=== PATIENT | male | born 2005 | race Caucasian/White ===

== ENCOUNTER 2023-07-14 19:10 | Observation (INO) | payer BC, SELFPAY ==
[2023-07-14] VITALS (9 sets, daily range): BP systolic 141–159; BP diastolic 72–96; PULSE 88–125; RESP 18; TEMP 37.6–37.9; O2SAT 95–99; BMI 22.3; BMI 23.6
[2023-07-14 19:30] LABS: Lactate* 2.7 mmol/L (0.5-1.9)
[2023-07-14] MEDS: 0.9 % SODIUM CHLORIDE 1000 ml 1,000 ML IV ×2 (19:30)
--- NOTE | 2023-07-14 19:30 | CRLHL7_ITS ---
For Patients: As a result of the Cures Act, medical imaging exams and procedure reports are released immediately into your electronic medical record. You may view this report before your referring provider. If you have questions, please contact your health care provider. INDICATION: Cough TECHNIQUE: Chest 1 view. COMPARISON: None. FINDINGS: The heart is normal in size. The pulmonary vasculature is within normal limits. There is consolidation within the right lower lung. Left lung is clear. Negative for pleural effusion or pneumothorax. IMPRESSION: Right consolidation, suggestive of pneumonia. Dictated by Rona Nash MD @ 07/14/2023 8:37:05 PM Dictated by: Rona Nash MD @ 07/14/2023 20:37:48 (Electronically Signed)
[2023-07-14 19:34] LABS: Eosinophils Percent Auto 1.2 % (0.0-7.0); Hematocrit 45.9 % (37.0-53.0); Hemoglobin* 15.2 gm/dL (13.5-17.5); Immature Granulocytes Pct Auto 0.2 %; Mean Corpuscular HGB Conc 33 gm/dL (32-36); Mean Corpuscular Hemoglobin 28 pg (26-34); Mean Corpuscular Volume 86 fL (80-100); Monocytes Percent Auto 9.3 % (0.0-11.0); Neutrophils Percent Auto 78.3 % (42.0-72.0); Platelet Count* 352 K/uL (140-440); RDW Coefficient of Variation % 12.2 % (11.5-15.5); Red Blood Count 5.35 m/uL (4.30-5.90); Slide Review Reflex Yes; White Blood Count* 22.37 K/uL (4.50-11.00)
[2023-07-14 19:46] LABS: Chloride* 105 mmol/L (96-114); Potassium* 4.1 mmol/L (3.6-5.1); Sodium* 139 mmol/L (135-149)
[2023-07-14 19:49] LABS: Anion Gap 14 mEq/L (7-15); Blood Urea Nitrogen* 14 mg/dL (5-24); Carbon Dioxide* 20 mmol/L (20-32); Creatinine* 0.8 mg/dL (0.5-1.5); Estimated Glomerular Filt Rate 130 ml/min; Glucose* 112 mg/dL (60-115)
--- NOTE | 2023-07-14 19:49 | ED_ITS ---
HPI - General Adult General Time Seen by Provider: 19:49 Date Seen: 07/14/23 Chief complaint: Cough Stated complaint: Coughing, difficulty breathing-no info Time Seen by Provider: 07/14/23 19:48 Source: patient and RN notes reviewed Mode of arrival: wheelchair Limitations: no limitations History of Present Illness HPI narrative: Patient is a 18-year-old college student from [place] coming in with coughing and fevers. He states he had a cold for about 2 weeks but last week on Saturday, fevers started to kick in. He has felt worse, coughing, having fevers. He went swimming with out success yesterday, swims for [employer]. No nausea vomiting or diarrhea. Has a history of penicillin allergy, has been trying [id number] cough and cold medicine. Nursing staff reported when he arrived he was coughing to the point he could not talk, was diaphoretic and sweaty. The did get an IV started, start some normal saline immediately. Two blood cultures were drawn. Related Data Previous Rx's Medication Instructions Recorded guaifenesin 600 mg tablet, 600 mg PO BID #14 tabs 07/15/23 extended release 12 hr (Mucus Relief ER) levofloxacin 750 mg tablet 500 mg (0.6667 x 750 mg) PO HS 5 07/15/23 days #5 tabs Allergies Allergy/AdvReac Type Severity Reaction Status Date / Time Penicillins Allergy Mild Hives Verified 07/14/23 20:23 Review of Systems Status of ROS: Reports: 6 or more systems reviewed and unremarkable except as noted in History and below PFSH PFS Surgical History (Updated 07/14/23 @ 22:14 by Olga Case MD) History of placement of ear tubes ?Z96.22 - Myringotomy tube(s) status (ICD-10) Melissa teeth extracted ?K08.409 - Partial loss of teeth, unspecified cause, unspecified class (ICD- 10) History of testicular surgery ?Z98.890 - Other specified postprocedural states (ICD-10) Social History (Updated 07/14/23 @ 22:15 by Olga Case MD) Narrative: From [place], [place]. 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 lives in the dorms. nonsmoker. no vaping. social etoh. What is your current living situation?: I presently have a place to live Problems where you live: no known problems Problems where you live details: N/A In the past 12 months, utilities in danger of being shut off: no In past 12 months, lack of transportation kept you from medical appts, meetings, work, or getting things needed for daily living: no In the past 12 mos, have been you worried that your food would run out before you had money to buy more?: never true In the past 12 mos, the food you bought just didn't last and you didn't have money to buy more?: never true Highest level of school completed/degree received: high school graduate Smoking Status: Never smoker Do you use any of these nicotine containing products: None Second hand tobacco smoke exposure: No How often do you have a drink containing alcohol: never How often do you have six or more drinks on one occasion: Never AUDIT-C Alcohol total score: 0 Non-prescribed substance use: denies use Caffeine: Yes How often does anyone, including family, friends and others, physically hurt you : never How often does anyone, including family, friends and others, insult or talk down to you: never How often does anyone, including family, friends and others, threaten you with harm: never How often does anyone, including family, friends and others, scream or curse at you: never Exam Const: Vital Signs, click to edit/add: Vital Signs - 24 hr 07/14/23 19:18 07/14/23 19:28 Temperature 99.7 F H Pulse Rate [Right Pulse Oximeter] 125 H Respiratory Rate 18 Blood Pressure [Ri ght Upper Arm] 153/96 H Pulse Oximetry 95 95 Oxygen Delivery Me thod Room Air Patient is not coughing to the point that I heard when he 1st came in. He was literally coughing nonstop. Voice is little hoarse presumably from coughing. Sclera clear, conjugate gaze, looks like he does not feel well but is very pleas ant. Face atraumatic, neck supple, no cervical adenopathy or thyromegaly masses or nodules, is able to sit up for me to listen to, has definite crackles right base, diminished air entry left base but I do not hear any wheezing anywhere. CV fast but regular, no murmur, normal S1-S2, no S3 or S4. Abdomen is slender, soft, nondistended, nontender, no organomegaly. He has no lower extremity edema. Skin is currently dry but nursing staff noted that he was sweaty and diaphoretic when he 1st came in. I see no rash. Documenting provider has reviewed patient's vital signs: yes Course Course ED Course: Chest x-ray and labs were done prior to my seen patient. I was able to identify pneumonia on my preliminary review of his chest x-ray. I have subsequently ordered IV antibiotics with Rocephin and oral azithromycin. 2 L of IV fluid have been ordered. Patient does meet criteria for sepsis, he is ill enough that I do think we should observe overnight and make sure that he is clinically stable. Have ordered some Robitussin with codeine to help with his cough symptoms. Reevaluation(s) Time of Reevaluation #1: 20:33 Reevaluation #1: Dad is here, reviewed findings and plan. All are in agreement. Consultations Consultation #1: Have reviewed this case with the hospitalist, she does accept him. Have advised the patient of a plan for observation overnight, he is certainly in agreement. Time: 20:09 Vital Signs Vital signs: Initial Vital Signs Temperature 99.7 F H 07/14/23 19:18 Temperature Source Oral 07/14/23 19:18 Pulse Rate 125 H 07/14/23 19:18 Respiratory Rate 18 07/14/23 19:18 Blood Pressure 153/96 H 07/14/23 19:18 Blood Pressure Mean 115 H 07/14/23 19:18 Blood Pressure Position Supine 07/14/23 19:18 Pulse Oximetry 95 07/14/23 19:18 Oxygen Delivery Method Room Air 07/14/23 19:18 Vital Signs Temperature 99.7 F H 07/14/23 19:18 Pulse Rate 125 H 07/14/23 19:18 Respiratory Rate 18 07/14/23 19:18 Blood Pressure 153/96 H 07/14/23 19:18 Pulse Oximetry 95 07/14/23 19:18 Oxygen Delivery Method Room Air 07/14/23 19:18 Temperature 98.4 F 07/15/23 07:00 Pulse Rate 72 07/15/23 07:00 Respiratory Rate 18 07/15/23 07:00 Blood Pressure 136/86 07/15/23 07:00 Pulse Oximetry 99 07/15/23 07:00 Oxygen Delivery Method Room Air 07/15/23 07:00 Medications Administered Medications: Discontinued Medications Generic Name Dose Route Start Last Admin Trade Name Ye PRN Reason Stop Dose Admin Azithromycin 500 mg 07/14/23 19:54 07/14/23 20:20 Azithromycin 250 Mg Tablet PO 07/14/23 19:55 500 mg ONCE ONE Administration Guaifenesin/Codeine Phosphate 10 ml 07/14/23 19:54 07/15/23 07:29 Guaif/Codeine 200/20mg/10 Ml Solution PO 07/14/23 19:55 Not Given ONCE ONE Ceftriaxone Sodium 2 gm/ 100 mls @ 200 mls/hr 07/14/23 19:54 07/14/23 21:20 Sodium Chloride IVPB 07/14/23 19:55 Infused ONCE ONE Infusion Sodium Chloride 1,000 mls @ 1,000 mls/hr 07/14/23 20:07 07/15/23 07:29 0.9 % Sodium Chloride 1000 Ml IV 07/14/23 21:06 Infused .Q1H LILLI Infusion Sodium Chloride 1,000 mls @ 1,000 mls/hr 07/14/23 20:25 07/14/23 20:33 0.9 % Sodium Chloride 1000 Ml IV 07/14/23 21:24 Infused .Q1H LILLI Infusion Sodium Chloride 1,000 mls @ 250 mls/hr 07/14/23 22:09 07/15/23 10:35 0.9 % Sodium Chloride 1000 Ml IV 250 mls/hr .Q4H LILLI Administration Ketorolac Tromethamine 30 mg 07/14/23 22:09 07/15/23 10:35 Ketorolac 30 Mg/Ml Inj IVP 30 mg Q6H LILLI Administration Levofloxacin 500 mg 07/14/23 23:15 07/15/23 00:08 Levofloxacin 500 Mg Tablet PO 500 mg HS LILLI Administration Sodium Chloride 5 ml 07/14/23 22:09 07/14/23 23:20 Sodium Chloride 0.9 % (Flush) 10 Ml Syringe IVF 5 ml .FLUSH PRN Administration Sodium Chloride 5 ml 07/14/23 22:09 07/15/23 10:29 Sodium Chloride 0.9 % (Flush) 10 Ml Syringe IVF Not Given BID [facility] Medical Decision Making Lab Data Lab results reviewed: Yes I reviewed the patient's lab results Labs: Lab Results 07/14/23 07/14/23 07/14/23 Range/Units 19:15 19:22 20:09 WBC 22.37 H (4.50-11.00) K/uL RBC 5.35 (4.30-5.90) m/uL Hgb 15.2 (13.5-17.5) gm/dL Hct 45.9 (37.0-53.0) % MCV 86 (80-100) fL MCH 28 (26-34) pg MCHC 33 (32-36) gm/dL RDW Coeff of Jason 12.2 (11.5-15.5) % Plt Count 352 (140-440) K/uL Neut % (Auto) 78.3 H (42.0-72.0) % Lymph % (Auto) 11.0 L (20-44) % Garrett % (Auto) 9.3 (0.0-11.0) % Eos % (Auto) 1.2 (0.0-7.0) % Baso % (Auto) 0.0 (0.0-3.0) % Neut # (Auto) 17.50 H (1.7-7.0) K/uL Lymph # (Auto) 2.50 (0.90-2.90) K/uL Garrett # (Auto) 2.10 H (0.00-0.90) K/UL Eos # (Auto) 0.30 (0.00-0.50) K/uL Baso # (Auto) 0.00 (0.00-0.30) K/uL Abs Immat Gran (auto) 0.00 (0.00-0.30) K/uL Imm/Tot Granulo (auto) 0.2 % Diff Slide Review Acceptable Review (Acceptable) VBG pH 7.462 H (7.32-7.43) VBG pCO2 31 L (40-50) mmHG VBG pO2 64.9 H (25-47) mmHG VBG HCO3 22 (21-28) mmol/L Sodium 139 (135-149) mmol/L Potassium 4.1 (3.6-5.1) mmol/L Chloride 105 (96-114) mmol/L Carbon Dioxide 20 (20-32) mmol/L Anion Gap 14 (7-15) mEq/L BUN 14 (5-24) mg/dL Creatinine 0.8 (0.5-1.5) mg/dL Estimated Creat Clear 151.20 Estimated GFR 130 ml/min Glucose 112 (60-115) mg/dL Lactate 2.7 H (0.5-1.9) mmol/L Calcium 9.8 (8.4-10.6) mg/dL C-Reactive Protein 19.0 H (0.5-1.0) mg/dL Procalcitonin 0.59 H (<0.50) ng/mL Urine L. pneumophilia Ag (Negative) Urine Strep pneumoniae Ag (Negative) SARS-CoV-2 (PCR) Negative SARS-CoV-2 (Negative) Influenza Type A (PCR) Negative PCR FLU A (Negative) Influenza Type B (PCR) Negative PCR FLU B (Negative) RSV (PCR) Negative PCR RSV (Negative) Lab Acknowledgement Test Added 07/14/23 07/14/23 Range/Units 20:12 20:40 WBC (4.50-11.00) K/uL RBC (4.30-5.90) m/uL Hgb (13.5-17.5) gm/dL Hct (37.0-53.0) % MCV (80-100) fL MCH (26-34) pg MCHC (32-36) gm/dL RDW Coeff of Jason (11.5-15.5) % Plt Count (140-440) K/uL Neut % (Auto) (42.0-72.0) % Lymph % (Auto) (20-44) % Garrett % (Auto) (0.0-11.0) % Eos % (Auto) (0.0-7.0) % Baso % (Auto) (0.0-3.0) % Neut # (Auto) (1.7-7.0) K/uL Lymph # (Auto) (0.90-2.90) K/uL Garrett # (Auto) (0.00-0.90) K/UL Eos # (Auto) (0.00-0.50) K/uL Baso # (Auto) (0.00-0.30) K/uL Abs Immat Gran (auto) (0.00-0.30) K/uL Imm/Tot Granulo (auto) % Diff Slide Review (Acceptable) VBG pH (7.32-7.43) VBG pCO2 (40-50) mmHG VBG pO2 (25-47) mmHG VBG HCO3 (21-28) mmol/L Sodium (135-149) mmol/L Potassium (3.6-5.1) mmol/L Chloride (96-114) mmol/L Carbon Dioxide (20-32) mmol/L Anion Gap (7-15) mEq/L BUN (5-24) mg/dL Creatinine (0.5-1.5) mg/dL Estimated Creat Clear Estimated GFR ml/min Glucose (60-115) mg/dL Lactate (0.5-1.9) mmol/L Calcium (8.4-10.6) mg/dL C-Reactive Protein (0.5-1.0) mg/dL Procalcitonin (<0.50) ng/mL Urine L. pneumophilia Ag L. pneumo Negative (Negative) Urine Strep pneumoniae Ag S. pneumo Negative (Negative) SARS-CoV-2 (PCR) (Negative) Influenza Type A (PCR) (Negative) Influenza Type B (PCR) (Negative) RSV (PCR) (Negative) Lab Acknowledgement Test Added Imaging Data Chest x-ray: My impression: I see definite right lower pneumonia on this portable chest x-ray. Critical Care Time Critical Care Time Critical Care Time: No Discharge Plan Discharge Clinical Impression: Community acquired pneumonia Patient Disposition: Admitted As Observation Condition: Improved Activity Level: Activity as Tolerated Discharge Diet: Regular
[2023-07-14 19:50] LABS: Calcium* 9.8 mg/dL (8.4-10.6)
[2023-07-14 19:57] LABS: Slide Review Acceptable Review (Acceptable)
[2023-07-14 20:00] LABS: PCR FLU A Negative PCR FLU A (Negative); PCR FLU B Negative PCR FLU B (Negative); PCR RSV Negative PCR RSV (Negative)
[2023-07-14 20:01] LABS: SARS PCR* Negative SARS-CoV-2 (Negative)
[2023-07-14] MEDS: cefTRIAXone 2 GM in 0.9 % SODIUM CHLORIDE Mini-bag 100 ML IVPB (20:10)
[2023-07-14] MEDS: AZITHROMYCIN 250 MG TABLET 500 MG PO (20:20)
[2023-07-14 20:24] LABS: pH VBG 7.462 (7.32-7.43)
[2023-07-14 20:25] LABS: HCO3 VBG 22 mmol/L (21-28); PCO2 VBG 31 mmHG (40-50); PO2 VBG 64.9 mmHG (25-47)
--- NOTE | 2023-07-14 20:40 | P.IMHP_ITS ---
Hospitalist- H&P: HPI History of Present Illness Date Seen: 07/14/23 Chief complaint: Coughing, difficulty breathing-no info Narrative: ADMISSION HISTORY AND PHYSICAL - HOSPITALIST Chief Complaint: URI getting worse over the last 2-3 weeks. 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 He became much worse in the last 5 days - with fever to 102 and vomiting with coughing. He came to the ED tonight, SOB and feeling weak. He is a swimmer and very healthy. Reports no vaping, no recent binge drinking. No smoking. No meds. ER COURSE: fluids, labs, CXR. CODE STATUS: FULL CODE EMERGENCY CONTACT PLAN: Olga Sahni? Mother?Rel to Pat? [phone]?Cell Phone? I've updated the PFSH, medications and allergies in the Expanse tabs. INVESTIGATIONS: LABS/MICRO/ECG/IMAGING T-max 99.7?. Blood pressure 153/96. Pulse 125. Respiratory rate 18. Pulse ox 95% on room air. Weight 72.5 kilos CBC reveals a white count of 22.37 with 78.3% neutrophils. Normal hemoglobin of 15.2. Normal platelet count of 352. PH 7.46. PCO2 31. Normal electrolytes. Normal renal function. Lactate 2.7. CRP 19 Procal >0.5 Negative quad respiratory screen NEG strep pneumo and legionella CXR - 1V Right consolidation, suggestive of pneumonia. REVIEW OF SYSTEMS: 12-point ROS completed with patient and negative unless otherwise stated in HPI or below. PHYSICAL EXAM: CONSTITUTIONAL: flushed, alert, aware. looks ill. VITAL SIGNS: see record. HEENT: Normocephalic, atraumatic. PERRL, EOMI, conjunctivae pink, no scleral icterus. Ears and nose externally normal. Pharynx normal. NECK: No JVD. No carotid bruit, no thyromegaly, no adenopathy. CHEST: coughs with inhalation. crackles on the right chest noted. no wheezes. no resp distress. HEART: S1 and S2 normal. No harsh murmurs. Edema MUSCULOSKELETAL: No gross joint deformity or swelling. NEURO: Cranial nerves intact. Grossly intact. No asymmetric findings. SKIN: No rashes, petechiae, concerning changes PSYCHIATRIC: Euthymic. ADMIT TO MEDSURG: FLOOR CARE DVT: SCDs GI: PO intake Time spent: Today I spent 75 minutes seeing the patient, discussing the patient with ER staff, reviewing Expanse and EPIC notes/diagnostics, discussing the care plan with our care time that includes social work, PT/OT, pharmacy, RT, detention and documenting my impressions and plan in the medical record. [facility] Surgical History (Updated 07/14/23 @ 22:14 by Olga Case MD) History of placement of ear tubes ?Z96.22 - Myringotomy tube(s) status (ICD-10) [place]win teeth extracted ?K08.409 - Partial loss of teeth, unspecified cause, unspecified class (ICD- 10) History of testicular surgery ?Z98.890 - Other specified postprocedural states (ICD-10) Social History (Updated 07/14/23 @ 22:15 by Olga Case MD) Narrative: From [place], [place]. 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 lives in the dorms. nonsmoker. no vaping. social etoh. What is your current living situation?: I presently have a place to live Problems where you live: no known problems Problems where you live details: N/A In the past 12 months, utilities in danger of being shut off: no In past 12 months, lack of transportation kept you from medical appts, meetings, work, or getting things needed for daily living: no In the past 12 mos, have been you worried that your food would run out before you had money to buy more?: never true In the past 12 mos, the food you bought just didn't last and you didn't have money to buy more?: never true Highest level of school completed/degree received: high school graduate Smoking Status: Never smoker Do you use any of these nicotine containing products: None Second hand tobacco smoke exposure: No How often do you have a drink containing alcohol: never How often do you have six or more drinks on one occasion: Never AUDIT-C Alcohol total score: 0 Non-prescribed substance use: denies use Caffeine: Yes How often does anyone, including family, friends and others, physically hurt you : never How often does anyone, including family, friends and others, insult or talk down to you: never How often does anyone, including family, friends and others, threaten you with harm: never How often does anyone, including family, friends and others, scream or curse at you: never Meds Home Medications and Allergies Home Medications Medication Instructions Recorded Confirmed Type No Known Home Medications 07/14/23 07/14/23 History Allergies Allergy/AdvReac Type Severity Reaction Status Date / Time Penicillins Allergy Mild Hives Verified 07/14/23 20:23 Exam Const: Vital Signs, click to edit/add: Vital Signs - 24 hr 07/14/23 19:18 07/14/23 19:28 Temperature 99.7 F H Pulse Rate [Right Pulse Oximeter] 125 H Respiratory Rate 18 Blood Pressure [Ri ght Upper Arm] 153/96 H Pulse Oximetry 95 95 Oxygen Delivery Me thod Room Air Hospitalist - H&P: Result Labs Labs: Short CBC 07/14/23 Range/Units 19:22 WBC 22.37 H (4.50-11.00) K/uL Hgb 15.2 (13.5-17.5) gm/dL Hct 45.9 (37.0-53.0) % Plt Count 352 (140-440) K/uL BMP 07/14/23 19:22 Sodium 139 Potassium 4.1 Chloride 105 Carbon Dioxide 20 BUN 14 Creatinine 0.8 Glucose 112 Calcium 9.8 Assessment and Plan Assessment and plan (1) Community acquired pneumonia: Problem comment: -RLL -Rocephin and azithro in ED, transition to oral Levaquin in am -repeat labs and follow cultures -not on oxygen; however, lives in the dorms at [employer] - will admit to observation for nebs, close observation given SIRS symptoms with assoc weakness -father was bedside (DAMIEN Lomeli) Status: Acute (2) High serum lactate: Problem comment: -fluids -repeat in the am Status: Acute
[2023-07-14 20:50] LABS: Procalcitonin* 0.59 ng/mL (<0.50)
[2023-07-14 21:09] LABS: Legionella pneumo Ag Urine L. pneumo Negative (Negative); S pneumo Ag Urine S. pneumo Negative (Negative)
[2023-07-14] MEDS: 0.9 % SODIUM CHLORIDE 1000 ml 1,000 ML 250 ML IV (23:05)
[2023-07-14] MEDS: KETOROLAC 30 MG/ML inj IVP (23:18)
[2023-07-14] MEDS: SODIUM CHLORIDE 0.9 % (FLUSH) 10 ML SYRINGE 5 ML IVF (23:20)
[2023-07-15] MEDS: levoFLOXacin 500 MG TABLET PO (00:08)
[2023-07-15 03:00] VITALS: BP 127/67; PULSE 65; RESP 18; TEMP 36.9; O2SAT 97
[2023-07-15] MEDS: 0.9 % SODIUM CHLORIDE 1000 ml 1,000 ML 250 ML IV ×2 (03:07→10:35)
[2023-07-15] MEDS: KETOROLAC 30 MG/ML inj IVP ×2 (04:19→10:35)
--- NOTE | 2023-07-15 05:35 | PC.NURSE ---
Shift note: Pt arrived at the unit at 2130 on a wheelchair accompanied by his father. Alert and oriented on arrival. Pt complained of cough and fever. Temp was 100.3 and chilled. Warm blanket given. Other v/s WNL. Assessment done as per chat and oriented to room. Pt was admitted and reviewed by Dr. Case. Treatment given as prescribed.
[2023-07-15 06:07] LABS: HCO3 VBG 27 mmol/L (21-28); Lactate* 1.1 mmol/L (0.5-1.9); PCO2 VBG 49 mmHG (40-50); PO2 VBG 25.5 mmHG (25-47); pH VBG 7.343 (7.32-7.43)
[2023-07-15 06:12] LABS: Basophils Percent Auto 0.2 % (0.0-3.0); Eosinophils Percent Auto 2.6 % (0.0-7.0); Hematocrit 41.8 % (37.0-53.0); Hemoglobin* 13.7 gm/dL (13.5-17.5); Immature Granulocytes Pct Auto 0.8 %; Lymphocytes Percent Auto 15.5 % (20-44); Mean Corpuscular HGB Conc 33 gm/dL (32-36); Mean Corpuscular Hemoglobin 29 pg (26-34); Mean Corpuscular Volume 88 fL (80-100); Monocytes Percent Auto 9.3 % (0.0-11.0); Neutrophils Percent Auto 71.6 % (42.0-72.0); Platelet Count* 271 K/uL (140-440); RDW Coefficient of Variation % 12.5 % (11.5-15.5); Red Blood Count 4.76 m/uL (4.30-5.90); White Blood Count* 15.65 K/uL (4.50-11.00)
[2023-07-15 06:18] LABS: Slide Review Reflex No
[2023-07-15 06:37] LABS: Chloride* 107 mmol/L (96-114); Sodium* 140 mmol/L (135-149)
[2023-07-15 06:38] LABS: Potassium* 4.9 mmol/L (3.6-5.1)
[2023-07-15 06:40] LABS: Creatinine* 0.7 mg/dL (0.5-1.5); Est. Creatinine Clearance* 179.29; Estimated Glomerular Filt Rate 135 ml/min
[2023-07-15 06:41] LABS: Anion Gap 9 mEq/L (7-15); Blood Urea Nitrogen* 11 mg/dL (5-24); Calcium* 8.8 mg/dL (8.4-10.6); Carbon Dioxide* 24 mmol/L (20-32); Glucose* 116 mg/dL (60-115)
[2023-07-15 06:58] LABS: Procalcitonin* 0.55 ng/mL (<0.50)
[2023-07-15 07:00] VITALS: BP 136/86; PULSE 72; RESP 18; TEMP 36.9; O2SAT 99
[2023-07-15 07:01] LABS: C Reactive Protein* 16.3 mg/dL (0.5-1.0)
--- NOTE | 2023-07-15 11:29 | PM.DS1 ---
DS: Providers Provider Date Seen: 07/15/23 Date of admission: 07/14/23 21:26 Primary care physician: Not a Local Provider Admitting Clinician: Olga Case MD Consults: 07/14/23 22:09 Consult to Occupational Therapy [CONS] Routine Comment: Reason(s) for OT Consult:: Evaluate and Treat Any Restrictions?:: No Restrictions Consult to Respiratory Therapy [CONS] Routine Comment: Reason(s) for RT Consult:: Consult Consult to Molding Press Operator [CONS] Routine Comment: Reason for Consult:: Social Service Consult Attending Physician on discharge: KEI Cortes[facility] Date of Discharge: 07/15/23 DS: Diagnosis Discharge Diagnosis (1) Community acquired pneumonia: Status: Acute Problem details: -RLL consolidation noted on CXR. Leukocytosis, CRP, procalcitonin down trending on day of discharge, lactate normalized to 1.1. Strep pneumo and Legionella negative, COVID, RSV, influenza negative. -received 1 dose of Rocephin and azithro in ED along with IV fluids -temp 99.8? last night, has remained afebrile overnight and this morning. Not requiring oxygen On day of discharge, patient remained vitally stable, afebrile, with infection markers down trending. Discharged to home with his parents, rather than returning to dorm, to complete 5 day course of oral Levaquin. Advised to rest, stay hydrated, continue incentive spirometer, Mucinex. Gradual return to normal activity. Advised not to return to swimming or full class course for the remainder of this week. 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 Course of care and details as noted above. Status at Discharge Overall status at discharge: patient is progressing back to baseline Time Spent with Patient Time attestation: Total time spent providing and/or coordinating discharge services: Time spent: Greater than 30 minutes Exam Narrative: Exam Narrative: PHYSICAL EXAM General: Pleasant, conversant, NAD HEENT: Normocephalic, atraumatic, sclera white, EOMI, oral mucosa moist Cardiovascular: RRR, S1S2. No pitting edema Pulmonary: CTA bilaterally without rhonchi, rales, expiratory wheezes. No dyspnea on room air. Dry cough noted. Neurological: Alert, answering questions appropriately, cranial nerves appear intact, no focal findings Extremities: No gross joint deformity or swelling. AROMI. Neurovascularly intact Skin: Warm, dry. Const: Vital Signs, click to edit/add: Vital Signs - 24 hr 07/14/23 19:18 07/14/23 19:28 07/14/23 20:46 Temperature 99.7 F H Pulse Rate 88 Pulse Rate [Right Pulse Oximeter] 125 H Respiratory Rate 18 Blood Pressure 159/80 H Blood Pressure [Le ft Arm] Blood Pressure [Ri ght Upper Arm] 153/96 H Pulse Oximetry 95 95 99 Oxygen Delivery Me thod Room Air 07/14/23 20:47 07/14/23 21:00 07/14/23 21:15 Temperature Pulse Rate 88 89 95 Pulse Rate [Right Pulse Oximeter] Respiratory Rate Blood Pressure Blood Pressure [Le ft Arm] Blood Pressure [Ri ght Upper Arm] Pulse Oximetry 98 97 96 Oxygen Delivery Me thod 07/14/23 21:41 07/14/23 21:41 07/14/23 22:09 Temperature 100.3 F H Pulse Rate Pulse Rate [Right Pulse Oximeter] 90 Respiratory Rate 18 Blood Pressure Blood Pressure [Le ft Arm] 147/75 H Blood Pressure [Ri ght Upper Arm] Pulse Oximetry 97 97 97 Oxygen Delivery Me thod Room Air Room Air 07/14/23 22:09 07/14/23 22:09 07/14/23 23:00 Temperature 99.8 F H 99.8 F H Pulse Rate Pulse Rate [Right Pulse Oximeter] 95 95 Respiratory Rate 18 18 18 Blood Pressure Blood Pressure [Le ft Arm] 141/72 H 141/72 H Blood Pressure [Ri ght Upper Arm] Pulse Oximetry 97 99 99 Oxygen Delivery Me thod Room Air Room Air Room Air 07/14/23 23:00 07/15/23 03:00 07/15/23 07:00 Temperature 98.5 F 98.4 F Pulse Rate Pulse Rate [Right Pulse Oximeter] 95 65 72 Respiratory Rate 18 18 18 Blood Pressure Blood Pressure [Le ft Arm] 127/67 136/86 Blood Pressure [Ri ght Upper Arm] Pulse Oximetry 97 99 Oxygen Delivery Me thod Room Air Room Air DS: Data Data Completed and Pending Pending studies at discharge: Blood culture x2 Labs on day of discharge: Labs from last 24 hours 07/15/23 07/14/23 07/14/23 05:47 20:40 20:12 WBC 15.65 H RBC 4.76 Hgb 13.7 Hct 41.8 MCV 88 MCH 29 MCHC 33 RDW Coeff of Jason 12.5 Plt Count 271 Neut % (Auto) 71.6 Lymph % (Auto) 15.5 L [place] % (Auto) 9.3 Eos % (Auto) 2.6 Baso % (Auto) 0.2 Neut # (Auto) 11.20 H Lymph # (Auto) 2.40 [place] # (Auto) 1.50 H Eos # (Auto) 0.40 Baso # (Auto) 0.00 Abs Immat Gran (auto) Imm/Tot Granulo (auto) 0.8 Diff Slide Review VBG pH 7.343 VBG pCO2 49 VBG pO2 25.5 VBG HCO3 27 Sodium 140 Potassium 4.9 Chloride 107 Carbon Dioxide 24 Anion Gap 9 BUN 11 Creatinine 0.7 Estimated Creat Clear 179.29 Estimated GFR 135 Glucose 116 H Lactate 1.1 Calcium 8.8 C-Reactive Protein 16.3 H Procalcitonin 0.55 H Urine L. pneumophilia Ag L. pneumo Negative Urine Strep pneumoniae Ag S. pneumo Negative SARS-CoV-2 (PCR) Influenza Type A (PCR) Influenza Type B (PCR) RSV (PCR) Lab Acknowledgement Test Added 07/14/23 07/14/23 07/14/23 20:09 19:22 19:15 WBC 22.37 H RBC 5.35 Hgb 15.2 Hct 45.9 MCV 86 MCH 28 MCHC 33 RDW Coeff of Jason 12.2 Plt Count 352 Neut % (Auto) 78.3 H Lymph % (Auto) 11.0 L [place] % (Auto) 9.3 Eos % (Auto) 1.2 Baso % (Auto) 0.0 Neut # (Auto) 17.50 H Lymph # (Auto) 2.50 [place] # (Auto) 2.10 H Eos # (Auto) 0.30 Baso # (Auto) 0.00 Abs Immat Gran (auto) 0.00 Imm/Tot Granulo (auto) 0.2 Diff Slide Review Acceptable Review VBG pH 7.462 H VBG pCO2 31 L VBG pO2 64.9 H VBG HCO3 22 Sodium 139 Potassium 4.1 Chloride 105 Carbon Dioxide 20 Anion Gap 14 BUN 14 Creatinine 0.8 Estimated Creat Clear 151.20 Estimated GFR 130 Glucose 112 Lactate 2.7 H Calcium 9.8 C-Reactive Protein 19.0 H Procalcitonin 0.59 H Urine L. pneumophilia Ag Urine Strep pneumoniae Ag SARS-CoV-2 (PCR) Negative SARS-CoV-2 Influenza Type A (PCR) Negative PCR FLU A Influenza Type B (PCR) Negative PCR FLU B RSV (PCR) Negative PCR RSV Lab Acknowledgement Test Added Discharge Plan Discharge Disposition: Home, Self-Care Date of Admission: 07/14/23 21:26 Attending Provider on Discharge: Kaylene Whitman Primary Care Provider: Provider,Not a Local Condition: Improved Anticipated Discharge Date/Time: 07/15/23 10:35 Discharge Medications: New levofloxacin 750 mg tablet 500 mg PO HS 5 Days Qty: 5 0RF guaifenesin [Mucus Relief ER] 600 mg tablet extended release 12hr 600 mg PO BID Qty: 14 0RF Discharge Orders: Discharge Order (Routine); Ordered 07/15/23 Ordered By: Kaylene Whitman Patient Education: Levofloxacin (By mouth), Guaifenesin/Phenylephrine (By mouth), Bacterial Pneumonia (GEN) Additional Instructions: Continue the oral antibiotic and mucinex as prescribed. Rest. Stay hydrated. Continue to use the incentive spirometer as instructed. Gradual return to normal acitivty. No swimming (practice/meets) for the week. Activity Level: Activity as Tolerated Discharge Diet: Regular Follow Up Appointments: Provider,Not a Local [Primary Care Provider] - 07/22/23 (Return to school/activitites) Forms: [employer] Info Instructions
--- NOTE | 2023-07-15 11:51 | PC.NURSE ---
Discharge-- Very pleasant and cooperative, alert and oriented patient was discharged to home ambulatory with father at approximately 1115. VSS and pt is afebrile. SPO2 maintained >94% on RA. He denied any pain. Crackles auscultated in posterior right base, LS otherwise CTA. Pt continues to have a frequent, minimally productive cough. He denied nausea this morning and ate 100% of a regular diet without difficulty. Discharge information was provided including diagnosis info, symptoms to report, medications and follow up plan. All questions answered. SL was removed with tip intact.
== END 2023-07-15 11:15 | disposition home or self-care (01) ==
LOC: ED 21:00 → MEDSURG 21:28
PROVIDERS: Admitting Provider Family Medicine; Emergency Provider Family Medicine; Visit Provider Family Medicine
DX: J18.9 Pneumonia, unspecified organism (principal); R79.89 Other specified abnormal findings of blood chemistry; D72.829 Elevated white blood cell count, unspecified; R74.02 Elevation of levels of lactic acid dehydrogenase [LDH]; R53.1 Weakness; Z88.0 Allergy status to penicillin; Z11.52 Encounter for screening for COVID-19; Z96.22 Myringotomy tube(s) status; K08.409 Partial loss of teeth, unspecified cause, unspecified class; Z98.890 Other specified postprocedural states
CPT/HCPCS: 36415; 71045; 80048; 82803; 83605; 84145; 85025; 86140; 87040; 87449; 87631; 87899; 94761; 96361; 96365; 96375; 96376; 99284; 99285; A9270; G0378; J0696; J1885; J7030

== ENCOUNTER 2024-10-03 14:08 | Emergency (ER) | payer BC, SELFPAY ==
[2024-10-03] VITALS (10 sets, daily range): BP systolic 124–134; BP diastolic 68–79; PULSE 60–78; RESP 12–16; TEMP 36.7; O2SAT 96–100; BMI 25.1
--- OUTSIDE RECORDS SUMMARY | 2024-10-03 14:11 | XMS_ITS | Clinical Summary ---
Author Organization [employer] Address [place], [place] [address] Care Team Providers Care Audio Visual Secretary Name Role Phone Pcp, No Primary Care Provider Unavailabl e Allergies Active Allergy Reactions Criticality Noted Date Comments Amoxicillin-Pot Clavulanate Vomiting Low 08/20/20 11 Penicillins Rash,*Unknown - Foll ow up needed 06/10/2012 Medications No known medications Social History Tobacco Use Types Packs/Day Years Used Date Smoking Tobacco: Never Smokeless Tobacco: Never Tobacco Cessation:Counseling Given: Not Answered Alcohol Use Standard Drinks/Week Comments Never 0 (1 standard drink = 0.6 oz pur e alcohol) Social Connections Answer Date Recorded Frequency of Communication with Friends and Fami ly Not on file 09/12/2022 Sex and Gender Information Value Date Recorded Sex Assigned at Not on file Legal Sex Male 6:30 AM MACHINE LACER Gender Identity Not on file Sexual Orientation Not on file Obstetrics History Last Filed Vital Signs Vital Sign Reading Time Taken Comments Blood Pressure 124/75 09/12/2022 2:36 PM MACHINE LACER Pulse 67 09/12/2022 2:36 PM MACHINE LACER Temperature 36.8 C (98.2 F) 09/12/2022 2:36 PM MACHINE LACER Respiratory Rate 18 03/16/2020 8:07 PM CDT Oxygen Saturation 95% 09/12/2022 2:36 PM MACHINE LACER Inhaled Oxygen Concentration - - Weight 68.9 kg (152 lb) 03/16/2020 8:07 PM CDT Height 177.8 cm (5' 10) 03/16/2020 8:07 PM CDT Body Mass Index 21.81 03/16/2020 8:07 PM CDT Plan of Treatment Health Maintenance Due Date Last Done Comments Tdap 2014 Depression screening for age 12+ 2015 HIV for age 15-65 2018 HPV series for age 9-26 (1 - Male 3-dose series) 2018 BMI (ht and wt on same day) for age 18+ 2021 Hepatitis C screening for age 18-79 2021 Tetanus booster 2023 COVID-19 vaccine series ( season) 2024 07/25/2022, 08/31/2021, 01/09/2021, Additional history exists Influenza for age 9-49 05/03/2024 Meningococcal series for age 11-21 Aged Out No longer eligible based on patient's age to complete this topic Pneumococcal series for age 6-49 Aged Out No longer eligible based on patient's age to complete this topic Insurance . [place] [id number] [facility] [place] [address] [employer] [place] [address] Care Teams Audio Visual Secretary Relationship Specialty Start Date End Date Pcp, No . PCP - General 04/26/21
--- OUTSIDE RECORDS SUMMARY | 2024-10-03 14:11 | XMS_ITS | Encounter Summary ---
Author Organization [employer] Address [address] [place] [address] Care Team Providers Care Hat Mender Name Role Phone Maikol Gutierrez PA-C Primary Care Provider Encounter Details Date Type Department Care Team (Late st Contact Info) Description 03/07/2013 Emergency Room External to [facility], Provider EAR PAIN Social History Tobacco Use Types Packs/Day Years Used Date Smoking Tobacco: Never Comments:Smoke Free Home Alcohol Use Standard Drinks/Week Comments Not Asked 0 (1 standard drink = 0.6 oz pur e alcohol) Sex and Gender Information Value Date Recorded Sex Assigned at Not on file Gender Identity Not on file Sexual Orientation Not on file documented as of this encounter Progress Notes * [facility], Provider - 03/07/2013 12:00 AM CDT documented in this encounter Plan of Treatment Not on file documented as of this encounter Visit Diagnoses Not on filedocumented in this encounter Care Teams Hat Mender Relationship Specialty Start Date End Date Maikol Gutierrez PA-C [address] [place] [id number] PCP - General Physician [place] Layer 05/02/23 documented as of this encounter
--- OUTSIDE RECORDS SUMMARY | 2024-10-03 14:11 | XMS_ITS | Clinical Summary ---
Author Organization [employer] Address [address] [place] [address] Care Team Providers Care Candy Mixer Name Role Phone Maikol Gutierrez PA-C Primary Care Provider [phone] Source Comments You are receiving this document as you are listed as the primary care provider,follow-up provider, or the patient has been referred to you for consultation.This is in compliance with the Medicare and[facility] EHR Incentive Program,which states Providers who transition their patient to another setting of careor provider of care or refers their patient to another provider of care shouldprovide summary care record for each transition of care or referral. [employer] Allergies Active Allergy Reactions Criticality Noted Date Comments Amoxicillin Rash 02/04/2013 Penicillins Unknown 06/10/2012 Medications Medication Sig Dispensed Refills Start Date End Date Status Multiple Vitamin (MULTIVITAMINS OR) Active ALBUterol sulfate HFA 108 (90 Base) MCG/ACT inhalerIndications:Cough, unspecified type 2 Puffs. 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 Goals/Recommendations: Patient Instructions Resume fluoxetine at 5mg dose daily. Resume melatonin 2 hours before bedtime. Monitor anxiety and symptoms. Monitor for side effects discussed. Reviewed growth chart and percentiles. Suggest scheduling with therapist. Next appointment with Dr. Carr in 3-4 weeks. Otitis media 2003 07/21/2014 Overview (06/02/2015): PE tubes 2003 Epic Otitis media 04/24/2011 Streptococcal sore throat Immunizations Name Administration Dates Next Due 4vHPV (Gardasil) 11/08/2014,06/14/2014, 4 DTaP 04/26/2008, 4,2003,2002,2003 Flu Vac (3+ yrs) 07/08/2006 Flu Vac (6-35 mo) 06/28/2004 Flu Vac Preserv Free (6-35 mo) 08/15/2005,2003 HepA Ped/Adol (1-18 yrs) 02/28/2016,04/24/2013 Hib/HBV 04/12/2004,2003,2003 IPV (Polio) 04/26/2008, 4,2003,2002 Influenza (Flucelvax), Prese rv Free QIV 05/05/2020 Influenza IIV4 (Quadrivalent ) 0.5mL ([id number]) 06/06/2023,07/25/2022,05/03/2021,2016,06/19/2016 Influenza LAIV (Nasal, 2-49 yrs) 06/27/2015,06/02,04/24/2013 Influenza LAIV3 2-49 years (Flumist) 04/24/2011, 05/12/2008 Influenza Vaccine, Nasal ([facility]) 06/18/2012 ,07/25/2010,06/21/2010 MCV4 Menveo 2m.+ (two vial) 04/16/2019 MMR 04/26/2008,04/12/2004 MPSV4 (Menomune) 04/30/2014 Pfizer Bivalent 12+ 07/25/2022 Pfizer COVID-19 12+ 06/06/2023 Pfizer Monovalent 12+ Purple Top 08/31/2021,12/31,12/19/2020 Pneumococcal 7, PED 07/12/2004, 4,2003,2002 Tdap 05/02/2023,04/24/2013 Varicella 04/26/2008,07/12/2004 Family History Medical History Relation Name Comments Hypertension Father Lobo Psoriasis Father Lobo Thyroid Disorder Father Lobo No Known Problems Mother Olga No Known Problems Brother Rich Coronary Artery Disease Maternal Grandfather Hypertension Maternal Grandfather Hypertension Maternal Grandmother CVID Paternal Aunt 1 CVID Paternal Aunt 2 CVID Paternal Cousin No Known Problems Sister Valeria Anesthesia Reaction Negative Family History Bleeding Disorder Negative Family History Relation Name Status Comments Father Lobo Alive Mother Olga Alive Brother Rich Alive Rich 06/2000 Maternal Grandfather Maternal Grandmother Paternal Aunt 1 Paternal Aunt 2 Other Paternal Cousin Other Sister Valeria Alive Social History Tobacco Use Types Packs/Day Years Used Date Smoking Tobacco: Never Passive Smoke Exposure: Never Smokeless Tobacco: Never Tobacco Cessation:Counseling Given: Not Answered Comments:Smoke Free Home Alcohol Use Standard Drinks/Week Comments Yes 0 (1 standard drink = 0.6 oz pure alcohol) Once a week, 1-3 servings per occasion PHQ-2 Answer Date Recorded PHQ-2 Score 0 05/02/2023 Financial Resource Strain Answer Date R ecorded Is it hard for you to pay fo r the very basics like food, housing, medical care or heating? No 05/02/2023 Food Insecurity Answer Date Recorded Does your food run out before you have the money to buy more? No 05/02/2023 Transportation Needs Answer Date Record ed Does a lack of transportatio n keep you from your medical appointments or from getting your medications? No 023 Sex and Gender Information Value Date Recorded Sex Assigned at Not on file Gender Identity Not on file Sexual Orientation Not on file Last Filed Vital Signs Vital Sign Reading Time Taken Comments Blood Pressure 124/63 11/28/2023 11:32 AM CDT Pulse 49 11/28/2023 11:32 AM CDT Temperature 37.1 C (98.7 F) 11/28/2023 11:32 AM CDT Respiratory Rate 20 04/15/2009 3:45 PM CDT Oxygen Saturation 96% 11/28/2023 11: 32 AM CDT Inhaled Oxygen Concentration - - Weight 80.6 kg (177 lb 12.8 oz) 024 11:32 AM CDT Height 180.3 cm (5' 11) 05/02/2023 8:24 AM CDT Body Mass Index 24.8 05/02/2023 8:24 AM CDT Plan of Treatment Health Maintenance Due Date Last Done Comments Adult Preventive Visit 05/02/2024 , 02/13/2022, 05/03/2021, Additional history exists COVID-19 Vaccine ( season) 2024 06/06/2023, 07/25/2022, 08/31/2021, Additional history exists Influenza (#1) 2024 06/06/2023, 07/04, 05/03/2021, Additional history exists DTaP/Tdap/Td (8 - Tdap) 05/02/2033 05/02/20, 04/24/2013, 04/26/2008, Additional history exists Zoster/Shingles (1 of 2) 2053 HepB Completed 04/12/2004, 08/02, 2003 Hib Completed 04/12/2004, 08/02, 2003 Pneumococcal Aged Out 07/12/2004, 05/2004, 2003, Additional history exists No longer eligible based on patient's age to complete this topic IPV (Polio) Completed 04/26/2008, 05/2004, 2003, Additional history exists Varicella Completed 04/26/2008, 07/12/2004 HPV Vaccine Completed 11/08/2014, 06/02, 04/30/2014 HepA Completed 02/28/2016, 04/24/2013 MCV4 Completed 04/16/2019, 04/30/2014 HIV Screening (Preventive Services) Completed 04/08/2020 Hep C Screening (Preventive Services) Completed 05/02/2023 Procedures Procedure Name Priority Date/Time Associated Diagnosis Comments HEPATITIS C ANTIBODY, WITH REFLEX Routine 05/02/2023 9:44 AM CDT Need for hepatitis C screening test HIV 1/2 AG/AB 4TH GEN Routine 04/08/2020 9:36 AM CDT Screening for HIV (human immunodeficiency virus) from Last 3 Months or Most Recently Relevant to Health Maintenance Results * Hepatitis C Antibody, with Reflex (05/02/2023 9:44 AM CDT) Hepatitis C Antibody Negative (Non Reactive) Negative (Non Reactive) 05/02/2023 3:29 PM CDT [facility] Comment:Antibodies to HCV no t detected. Does not exclude the possiblity of exposure to HCV. Blood Venipuncture / Unknown 05/02/2023 9:44 AM CDT 05/02/2023 9:44 AM CDT Maikol Gutierrez PA-C LAB_1 Performing Organization Address [facility] Co de Phone Number [facility] [address] [phone] * HIV 1/2 Ag/Ab 4th Generation (04/08/2020 9:36 AM CDT) HIV 1/2 Antigen/Anti body (4th generation) Negative (Non Reactive) Negative (Non Reactive) 04/08/2020 3:19 PM CDT [facility] Comment:HIV-1 p24 Antigen an d HIV-1/HIV-2 Antibody not detected Blood Venipuncture / Unknown 04/08/2020 9:36 AM CDT 04/08/2020 9:36 AM CDT Scott Mcmillan MD LAB_1 Performing Organization Address City/[facility] Co de Phone Number [facility] [address] [phone] from Last 3 Months or Most Recently Relevant to Health Maintenance Insurance Payer Benefit Plan / Group Subscriber ID Effective Dates Phone Address Type BCBS BCBS STARR RETANA [id number] 2023-Present [address] [place] [address] Commercial Care Teams Candy Mixer Relationship Specialty Start Date End Date Maikol Gutierrez, EDITHC [address] [place] [address] PCP - General Physician Rod Welder 05/02/23
--- OUTSIDE RECORDS SUMMARY | 2024-10-03 14:11 | XMS_ITS | Encounter Summary ---
Author Organization [employer] Address [address] [place] [address] Care Team Providers Care Agency Trainer Name Role Phone Maikol Gutierrez PA-C Primary Care Provider [phone] Encounter Details Date Type Department Care Team (Late st Contact Info) Description 10/14/2016 Emergency Room External to [facility], Provider COUGH Social History Tobacco Use Types Packs/Day Years Used Date Smoking Tobacco: Never Smokeless Tobacco: Never Comments:Smoke Free Home Alcohol Use Standard Drinks/Week Comments Not Asked 0 (1 standard drink = 0.6 oz pur e alcohol) Sex and Gender Information Value Date Recorded Sex Assigned at Not on file Gender Identity Not on file Sexual Orientation Not on file documented as of this encounter Plan of Treatment Not on file documented as of this encounter Visit Diagnoses Not on filedocumented in this encounter Care Teams Agency Trainer Relationship Specialty Start Date End Date Maikol Gutierrez PA-C [address] [place] [address] PCP - General Physician Senior Tax Manager 05/02/23 documented as of this encounter
--- OUTSIDE RECORDS SUMMARY | 2024-10-03 14:11 | XMS_ITS | Encounter Summary ---
Author Organization [employer] Address [address] [place] [address] Care Team Providers Care Mailroom Courier Name Role Phone Maikol Gutierrez PA-C Primary Care Provider Encounter Details Date Type Department Care Team (Late st Contact Info) Description 04/16/2019 Correspondence External to External, [place] [address] SPORTS PE HISTORY FORM Social History Tobacco Use Types Packs/Day Years Used Date Smoking Tobacco: Never Smokeless Tobacco: Never Comments:Smoke Free Home Alcohol Use Standard Drinks/Week Comments No 0 (1 standard drink = 0.6 oz pur e alcohol) Sex and Gender Information Value Date Recorded Sex Assigned at Not on file Gender Identity Not on file Sexual Orientation Not on file documented as of this encounter Plan of Treatment Not on file documented as of this encounter Visit Diagnoses Not on filedocumented in this encounter Care Teams Mailroom Courier Relationship Specialty Start Date End Date Maikol Gutierrez PA-C [address] [place] [address] PCP - General Physician Staff Combat Information Center Officer 05/02/23 documented as of this encounter
--- OUTSIDE RECORDS SUMMARY | 2024-10-03 14:11 | XMS_ITS | Encounter Summary ---
Author Organization [employer] Address [address] [place] [address] Care Team Providers Care Throw Out Clerk Name Role Phone Maikol Gutierrez PA-C Primary Care Provider Encounter Details Date Type Department Care Team (Late st Contact Info) Description 02/01/2013 Emergency Room External to [facility], Provider RASH Social History Tobacco Use Types Packs/Day Years Used Date Smoking Tobacco: Never Comments:Smoke Free Home Alcohol Use Standard Drinks/Week Comments Not Asked 0 (1 standard drink = 0.6 oz pur e alcohol) Sex and Gender Information Value Date Recorded Sex Assigned at Not on file Gender Identity Not on file Sexual Orientation Not on file documented as of this encounter Progress Notes * [facility], Provider - 02/01/2013 12:00 AM CDT documented in this encounter Plan of Treatment Not on file documented as of this encounter Visit Diagnoses Not on filedocumented in this encounter Care Teams Throw Out Clerk Relationship Specialty Start Date End Date Maikol Gutierrez PA-C [address] [phone] PCP - General Physician Hydraulic Oil Tool Operator 05/02/23 documented as of this encounter
--- OUTSIDE RECORDS SUMMARY | 2024-10-03 14:11 | XMS_ITS | Encounter Summary ---
Author Organization [employer] Address [address] [place] [address] Care Team Providers Care Superannuation Funds Manager Name Role Phone Maikol Gutierrez PA-C Primary Care Provider Encounter Details Date Type Department Care Team (Late st Contact Info) Description 02/26/2016 Correspondence External to External, [place] [address] SPORTS QUALIFYING HISTORY FORM Social History Tobacco Use Types [...] on filedocumented in this encounter Care Teams Superannuation Funds Manager Relationship Specialty Start Date End Date Maikol Gutierrez PA-C [address] [place] [address] PCP - General Physician Console Assembler 05/02/23 documented as of this encounter
--- OUTSIDE RECORDS SUMMARY | 2024-10-03 14:11 | XMS_ITS | Encounter Summary ---
Author Organization [employer] Address [address] [place] [address] Care Team Providers Care Tower Equipment Installer Name Role Phone Maiokl Gutierrez PA-C Primary Care Provider [phone] Encounter Details Date Type Department Care Team (Late st Contact Info) Description 2003 [facility] Danisha Watkins MD [facility] Social History Tobacco Use Types Packs/Day Years Used Date Smoking Tobacco: Never Passive Smoke Exposure: Never Smokeless Tobacco: Never Comments:Smoke Free Home Alcohol Use Standard Drinks/Week Comments Yes 0 (1 standard drink = 0.6 oz pure alcohol) Once a week, 1-3 servings per occasion Sex and Gender Information Value Date Recorded Sex Assigned at Not on file Gender Identity Not on file Sexual Orientation Not on file documented as of this encounter Progress Notes * Danisha Watkins - 2005 12:00 AM CDT documented in this encounter Plan of Treatment Not on file documented as of this encounter Visit Diagnoses Not on filedocumented in this encounter Care Teams Tower Equipment Installer Relationship Specialty Start Date End Date Maikol Gutierrez PA-C [address] [place] [address] PCP - General Physician German Instructor 05/02/23 documented as of this encounter
--- OUTSIDE RECORDS SUMMARY | 2024-10-03 14:11 | XMS_ITS | Encounter Summary ---
Author Organization [employer] Address [address] [place] [address] Care Team Providers Care Director Of Event Sales Name Role Phone Maikol Gutierrez PA-C Primary Care Provider [phone] Encounter Details Date Type Department Care Team (Late st Contact Info) Description 2003 [facility] Danisha Watkins MD [facility]/OPERATIVE REPORT Social History Tobacco Use Types Packs/Day Years [...] * Danisha Watkins - 2005 12:00 AM ROTARY DRILL OPERATOR RY DRILL OPERATOR documented in this encounter Plan of Treatment Not on file documented as of this encounter Visit Diagnoses Not on filedocumented in this encounter Care Teams Director Of Event Sales Relationship Specialty Start Date End Date Maikol Gutierrez PA-C [address] [place] [address] PCP - General Physician Plant Accountant 05/02/23 documented as of this encounter
--- NOTE | 2024-10-03 14:39 | CRLHL7_ITS ---
For Patients: As a result of the Cures Act, medical imaging exams and procedure reports are released immediately into your electronic medical record. You may view this report before your referring provider. If you have questions, please contact your health care provider. INDICATION: Chest tightness. Shortness of breath TECHNIQUE: Chest radiograph 2 views COMPARISON: 10/01/2023 FINDINGS: Mediastinum: The mediastinum is normal in appearance. The heart silhouette is normal in size and morphology. Lung: Both lungs are unremarkable in appearance. No sign of pleural effusion seen. No pneumothorax is identified. Bone and Soft tissue: Unremarkable for age. IMPRESSION: 1. No acute cardiopulmonary disease is seen. Dictated by: Eric Downing MD @ 10/03/2024 15:00:21 (Electronically Signed)
--- OUTSIDE RECORDS SUMMARY | 2024-10-03 15:04 | XMS_ITS | Encounter Summary ---
Author Organization [employer] Address [address] [place] [address] Care Team Providers Care Assurance Senior Manager Insurance Name Role Phone Maikol Gutierrez PA-C Primary Care Provider Encounter Details Date Type Department Care Team (Late st Contact Info) Description 2003 [facility] Danisha Watkins MD [facility] Social History Tobacco Use [...] on filedocumented in this encounter Care Teams Assurance Senior Manager Insurance Relationship Specialty Start Date End Date Maikol Gutierrez PA-C [address] [place] [address] PCP - General Physician Applications Coordinator 05/02/23 documented as of this encounter
--- OUTSIDE RECORDS SUMMARY | 2024-10-03 15:04 | XMS_ITS | Clinical Summary ---
Author Organization [employer] Address [address] [place] [address] Care Team Providers Care Securities Dealer Name Role Phone Maikol Gutierrez PA-C Primary Care Provider Source Comments You are receiving this document as you are listed as the primary care provider,follow-up provider, or the patient has been referred to you for consultation.This is in compliance with the Medicare and[facility] Hospital[facility] EHR Incentive Program,which states Providers who transition their patient to another setting of careor provider of care or refers their patient to another provider of care shouldprovide summary care record for each transition of care or referral. [employer] Allergies Active Allergy Reactions Criticality Noted Date [...] QIV 05/05/2020 Influenza IIV4 (Quadrivalent ) 0.5mL (74241) 06/06/2023,07/25/2022,05/03/2021,2016,06/19/2016 Influenza LAIV (Nasal, 2-49 yrs) 06/27/2015,06/02,04/24/2013 [...] Negative (Non Reactive) 05/02/2023 3:29 PM CDT [facility] Comment:Antibodies to HCV no t detected. Does not exclude the possiblity of exposure to HCV. Blood Venipuncture / Unknown 05/02/2023 9:44 AM CDT 05/02/2023 9:44 AM CDT Maikol Gutierrez PA-C LAB_1 Performing Organization Address [facility] Co de Phone Number [facility] [address] [phone] * HIV 1/2 Ag/Ab 4th Generation (04/08/2020 9:36 AM CDT) HIV 1/2 Antigen/Anti body (4th generation) Negative (Non Reactive) Negative (Non Reactive) 04/08/2020 3:19 PM CDT [facility] Comment:HIV-1 p24 Antigen an d HIV-1/HIV-2 Antibody not detected Blood Venipuncture / Unknown 04/08/2020 9:36 AM CDT 04/08/2020 9:36 AM CDT Scott Mcmillan MD LAB_1 Performing Organization Address [facility] Co de Phone Number [facility] [address] [phone] from Last 3 Months or Most Recently Relevant to Health Maintenance Care Teams Securities Dealer Relationship Specialty Start Date End Date Maikol Gutierrez, EDITHC [address] [place] [address] [address] PCP - General Physician Liquified Natural Gas Technician 05/02/23
--- OUTSIDE RECORDS SUMMARY | 2024-10-03 15:04 | XMS_ITS | Encounter Summary ---
Author Organization [employer] Address [address] [place] [address] Care Team Providers Care Provider Relations Manager Name Role Phone Maikol Gutierrez PA-C Primary Care Provider Encounter Details Date Type Department Care Team (Late st Contact Info) Description 02/01/2013 Emergency Room External to [facility], Provider RASH Social History Tobacco Use [...] of this encounter Progress Notes * [facility], Provider - 02/01/2013 12:00 AM CDT documented in this encounter Plan of Treatment Not on file documented as of this encounter Visit Diagnoses Not on filedocumented in this encounter Care Teams Provider Relations Manager Relationship Specialty Start Date End Date Maikol Gutierrez PA-C [address] [id number] PCP - General Physician Hematology Technician 05/02/23 documented as of this encounter
--- OUTSIDE RECORDS SUMMARY | 2024-10-03 15:04 | XMS_ITS | Encounter Summary ---
Author Organization [employer] Address [address] [place] [address] Care Team Providers Care Regional Training Manager Name Role Phone Maikol Gutierrez PA-C Primary Care Provider Encounter Details Date Type Department Care Team (Late st Contact Info) Description 10/14/2016 Emergency Room External to [facility], Provider COUGH Social History Tobacco Use Types [...] on filedocumented in this encounter Care Teams Regional Training Manager Relationship Specialty Start Date End Date Maikol Gutierrez PA-C [address] [place] [address] PCP - General Physician Wwe Wrestler 05/02/23 documented as of this encounter"
--- OUTSIDE RECORDS SUMMARY | 2024-10-03 15:04 | XMS_ITS | Encounter Summary ---
Author Organization [employer] Address [address] [place] [address] Care Team Providers Care Ceramist Name Role Phone Maikol Gutierrez PA-C Primary Care Provider [phone] Encounter Details Date Type Department Care Team (Late st Contact Info) Description 2003 [facility] Danisha Watkins MD [facility]/OPERATIVE REPORT Social History Tobacco Use [...] * Danisha Watkins - 2005 12:00 AM INDUSTRIAL ENGINEERING STRIAL ENGINEERING documented in this encounter Plan of Treatment Not on file documented as of this encounter Visit Diagnoses Not on filedocumented in this encounter Care Teams Ceramist Relationship Specialty Start Date End Date Maikol Gutierrez PA-C [address] [place] [address] PCP - General Physician Staying Machine Operator 05/02/23 documented as of this encounter
--- OUTSIDE RECORDS SUMMARY | 2024-10-03 15:04 | XMS_ITS | Encounter Summary ---
Author Organization [employer] Address [address] [place] [address] Care Team Providers Care Administration Clerk Name Role Phone Maikol Gutierrez PA-C Primary Care Provider Encounter Details Date Type Department Care Team (Late st Contact Info) Description 03/07/2013 Emergency Room External to [facility], Provider EAR PAIN Social History [...] as of this encounter Progress Notes * [facility], Provider - 03/07/2013 12:00 AM CDT documented in this encounter Plan of Treatment Not on file documented as of this encounter Visit Diagnoses Not on filedocumented in this encounter Care Teams Administration Clerk Relationship Specialty Start Date End Date Maikol Gutierrez PA-C [address] [place] [id number] PCP - General Physician Integration Lead 05/02/23 documented as of this encounter
--- OUTSIDE RECORDS SUMMARY | 2024-10-03 15:04 | XMS_ITS | Encounter Summary ---
Author Organization [employer] Address [address] [place] [address] Care Team Providers Care Escrow Manager Name Role Phone Maikol Gutierrez PA-C Primary Care Provider Encounter Details Date Type Department Care Team (Late st Contact Info) Description 04/16/2019 Correspondence External to External, [place] [address] SPORTS PE HISTORY FORM Social History Tobacco [...] on filedocumented in this encounter Care Teams Escrow Manager Relationship Specialty Start Date End Date Maikol Gutierrez PA-C [address] [place] [address] [address] PCP - General Physician Materials Analyst 05/02/23 documented as of this encounter
--- OUTSIDE RECORDS SUMMARY | 2024-10-03 15:04 | XMS_ITS | Encounter Summary ---
Author Organization [employer] Address [address] [place] [address] Care Team Providers Care Ax Survey Worker Name Role Phone Maikol Gutierrez PA-C Primary Care Provider Encounter Details Date Type Department Care Team (Late st Contact Info) Description 02/26/2016 Correspondence External to External, [place] [address] SPORTS QUALIFYING HISTORY FORM Social History Tobacco [...] on filedocumented in this encounter Care Teams Ax Survey Worker Relationship Specialty Start Date End Date Maikol Gutierrez PA-C [address] [place] [address] PCP - General Physician Preschool Director 05/02/23 documented as of this encounter
--- OUTSIDE RECORDS SUMMARY | 2024-10-03 15:04 | XMS_ITS | Clinical Summary ---
Author Organization [employer] Address [place], [place] [address] Care Team Providers Care Straightedge Man Name Role Phone Pcp, No Primary Care [...] on file Legal Sex Male 6:30 AM PRECISION LENS POLISHER Gender Identity Not on file Sexual Orientation Not on file Obstetrics History Last Filed Vital Signs Vital Sign Reading Time Taken Comments Blood Pressure 124/75 09/12/2022 2:36 PM PRECISION LENS POLISHER Pulse 67 09/12/2022 2:36 PM PRECISION LENS POLISHER Temperature 36.8 C (98.2 F) 09/12/2022 2:36 PM PRECISION LENS POLISHER Respiratory Rate 18 03/16/2020 8:07 PM CDT Oxygen Saturation 95% 09/12/2022 2:36 PM PRECISION LENS POLISHER Inhaled Oxygen Concentration - - Weight 68.9 [...] age to complete this topic Insurance . [place] [id number] [facility] [place] Care Teams Straightedge Man Relationship Specialty Start Date End Date Pcp, No . PCP - General 04/26/21
[2024-10-03 15:12] LABS: Lactate* 3.4 mmol/L (0.5-1.9)
[2024-10-03 15:13] LABS: Basophils Absolute Auto 0.02 K/uL (0.00-0.30); Basophils Percent Auto 0.3 % (0.0-3.0); Eosinophils Absolute Auto 0.06 K/uL (0.00-0.50); Eosinophils Percent Auto 0.8 % (0.0-7.0); Hematocrit* 43.8 % (37.0-53.0); Hemoglobin* 14.7 gm/dL (13.5-17.5); Immature Granulocytes Abs Auto 0.01 K/uL (0.00-0.30); Immature Granulocytes Pct Auto 0.1 %; Lymphocytes Absolute Auto 1.68 K/uL (0.90-2.90); Lymphocytes Percent Auto 22.7 % (20-44); Mean Corpuscular HGB Conc 34 gm/dL (32-36); Mean Corpuscular Hemoglobin 29 pg (26-34); Mean Corpuscular Volume 85 fL (80-100); Monocytes Percent Auto 7.8 % (0.0-11.0); Neutrophils Absolute Auto 5.06 K/uL (1.7-7.0); Neutrophils Percent Auto 68.3 % (42.0-72.0); Platelet Count* 282 K/uL (140-440); RDW Coefficient of Variation % 12.5 % (11.5-15.5); Red Blood Count* 5.15 m/uL (4.30-5.90); White Blood Count* 7.41 K/uL (4.50-11.00)
[2024-10-03 15:21] LABS: Slide Review Reflex No
--- NOTE | 2024-10-03 15:29 | ED.GENADULT ---
HPI - General Adult General Chief complaint: Chest Pain Stated complaint: Chest pain (sharp and dull), lightheaded Time Seen by Provider: 10/03/24 14:21 Source: patient Mode of arrival: ambulatory Limitations: no limitations History of Present Illness HPI narrative: 19-year-old male presenting today with chest pain. Patient states he has been having chest pain on and off for many years. Things lately it has gotten worse and more frequent. Patient is a competitive swimmer and states that he does not have chest pain while he has swelling but today he had a meet and right when he touch the wall when he finished swimming he felt discomfort in his chest. He had to sit on the side of the pool for a couple minutes before he got out because he felt short of breath. And then when he stood up he felt wobbly on his feet and had to go sit on the bench. He does not feel that his pain is associated with eating. Nothing really seems to make it better or worse. Sometimes it comes when he is at rest or studying. It is located over the left anterior chest wall. Does not radiate. Patient and father deny any family history of sudden in young members less than 40 years old. Patient denies any personal history of syncope. Patient states that he drinks alcohol very rarely and socially. He denies vaping, smoking he or any other recreational drug use including cocaine or heroin. Related Data Home Medications ?Medication ?Instructions ?Recorded ?Confirmed No Known Home Medications 10/03/24 10/03/24 Allergies Allergy/AdvReac Type Severity Reaction Status Date / Time Penicillins Allergy Mild Hives Verified 10/03/24 14:20 Review of Systems Status of ROS: Reports: 10 or more systems reviewed and unremarkable except as noted in History and below [facility] Surgical History History of placement of ear tubes ?Z96.22 - Myringotomy tube(s) status (ICD-10) [place] teeth extracted ?K08.409 - Partial loss of teeth, unspecified cause, unspecified class (ICD-10) History of testicular surgery ?Z98.890 - Other specified postprocedural states (ICD-10) Social History Narrative: From [place]. swims for [employer]. sophomore. lives in the dorms. nonsmoker. no vaping. social etoh. What is your current living situation?: I presently have a place to live Problems where you live: no known problems Problems where you live details: N/A In the past 12 months, utilities in danger of being shut off: no In past 12 months, lack of transportation kept you from medical appts, meetings, work, or getting things needed for daily living: no In the past 12 mos, have been you worried that your food would run out before you had money to buy more?: never true In the past 12 mos, the food you bought just didn't last and you didn't have money to buy more?: never true Highest level of school completed/degree received: high school graduate Smoking Status: Never smoker Do you use any of these nicotine containing products: None Second hand tobacco smoke exposure: No How often do you have a drink containing alcohol: never How often do you have six or more drinks on one occasion: Never AUDIT-C Alcohol total score: 0 Non-prescribed substance use: denies use Caffeine: Yes How often does anyone, including family, friends and others, physically hurt you: never How often does anyone, including family, friends and others, insult or talk down to you: never How often does anyone, including family, friends and others, threaten you with harm: never How often does anyone, including family, friends and others, scream or curse at you: never Exam Narrative: Exam Narrative: Well-nourished well-developed patient in no acute distress. Alert and oriented. Answers questions appropriately. Mood and affect are appropriate. Thoughts are goal oriented and rational. No tangential or magical thinking noted. Patient speaks in full sentences without needing to catch his breath. HEENT: Normocephalic atraumatic. Pupils are equally round reactive to light. Extraocular muscles are intact. Conjunctivae are moist without any icterus noted. Moist mucous membranes. Posterior pharynx is normal. Neck is soft without any lymphadenopathy or thyromegaly. No masses are appreciated. Cardiovascular: Heart is regular rate and rhythm S1 and S2 are present without any murmurs. Lungs: Clear to auscultation bilaterally no wheezes rhonchi or rales are appreciated. Patient takes deep breaths without any discomfort. I cannot reproduce his pain with palpation. Abdomen: Soft and nontender nondistended with normal bowel sounds. Extremities: Bilateral lower extremities are without edema. Skin: Well perfused without any obvious rashes. Const: Vital Signs, click to edit/add: Vital Signs - 24 hr 10/03/24 14:13 10/03/24 14:38 10/03/24 14:39 Temperature 98.1 F Pulse Rate 66 71 Pulse Rate [Pulse Oximeter] 78 Respiratory Rate 16 12 Blood Pressure 124/69 Blood Pressure [Ri ght Upper Arm] 125/68 Pulse Oximetry 96 97 97 Oxygen Delivery Me thod Room Air 10/03/24 14:42 10/03/24 14:45 10/03/24 15:00 Temperature Pulse Rate 60 68 Pulse Rate [Pulse Oximeter] Respiratory Rate Blood Pressure Blood Pressure [Ri ght Upper Arm] Pulse Oximetry 98 98 99 Oxygen Delivery Me thod 10/03/24 15:02 10/03/24 15:03 10/03/24 15:32 Temperature Pulse Rate 72 69 Pulse Rate [Pulse Oximeter] Respiratory Rate 16 Blood Pressure 127/79 128/75 Blood Pressure [Ri ght Upper Arm] Pulse Oximetry 100 100 Oxygen Delivery Me thod 10/03/24 16:36 Temperature Pulse Rate Pulse Rate [Pulse Oximeter] Respiratory Rate Blood Pressure 134/70 Blood Pressure [Ri ght Upper Arm] Pulse Oximetry Oxygen Delivery Me thod Course Course ED Course: Five EKG, read by me, shows sinus bradycardia 2, pulse 58, first-degree AV block. . He has J-point elevation. Lab work is unremarkable, negative inflammatory markers. Lactate however was elevated at 3.4 on arrival. Patient received a L of normal saline a repeat lactate was normal. He did again, just finish a swim meet. Chest x-ray, read by me, does not show any acute pathology. Vital Signs Vital signs: Initial Vital Signs Temperature 98.1 F 10/03/24 14:13 Temperature Source Oral 10/03/24 14:13 Pulse Rate 78 10/03/24 14:13 Respiratory Rate 16 10/03/24 14:13 Blood Pressure 125/68 10/03/24 14:13 Blood Pressure Mean 87 10/03/24 14:13 Pulse Oximetry 96 10/03/24 14:13 Oxygen Delivery Method Room Air 10/03/24 14:13 Vital Signs Temperature 98.1 F 10/03/24 14:13 Pulse Rate 78 10/03/24 14:13 Respiratory Rate 16 10/03/24 14:13 Blood Pressure 125/68 10/03/24 14:13 Pulse Oximetry 96 10/03/24 14:13 Oxygen Delivery Method Room Air 10/03/24 14:13 Temperature 98.1 F 10/03/24 14:13 Pulse Rate 69 10/03/24 15:03 Respiratory Rate 16 10/03/24 15:02 Blood Pressure 134/70 10/03/24 16:36 Pulse Oximetry 100 10/03/24 15:03 Oxygen Delivery Method Room Air 10/03/24 14:13 Medications Administered Medications: Discontinued Medications Generic Name Dose Route Start Last Admin Trade Name Freq PRN Reason Stop Dose Admin Sodium Chloride 1,000 mls @ 1,000 mls/hr 10/03/24 15:30 10/03/24 16:48 0.9 % Sodium Chloride 1000 Ml IV 10/03/24 16:29 Infused .Q1H LILLI Infusion Medical Decision Making MDM Narrative Medical decision making narrative: 19-year-old male with intermittent chest pain, not associated with physical activity. No significant abnormalities noted aside from J-point elevations and first-degree AV block on EKG. At this time recommend he establish care with a primary care provider to discuss further management. We discussed the possibility of an echocardiogram or a heart monitor. Lab Data Lab results reviewed: Yes I reviewed the patient's lab results Labs: Lab Results 10/03/24 10/03/24 Range/Units 15:00 17:08 WBC 7.41 (4.50-11.00) K/uL RBC 5.15 (4.30-5.90) m/uL Hgb 14.7 (13.5-17.5) gm/dL Hct 43.8 (37.0-53.0) % MCV 85 (80-100) fL MCH 29 (26-34) pg MCHC 34 (32-36) gm/dL RDW Coeff of Jason 12.5 (11.5-15.5) % Plt Count 282 (140-440) K/uL Neut % (Auto) 68.3 (42.0-72.0) % Lymph % (Auto) 22.7 (20-44) % Caroline % (Auto) 7.8 (0.0-11.0) % Eos % (Auto) 0.8 (0.0-7.0) % Baso % (Auto) 0.3 (0.0-3.0) % Neut # (Auto) 5.06 (1.7-7.0) K/uL Lymph # (Auto) 1.68 (0.90-2.90) K/uL Caroline # (Auto) 0.60 (0.00-0.90) K/UL Eos # (Auto) 0.06 (0.00-0.50) K/uL Baso # (Auto) 0.02 (0.00-0.30) K/uL Abs Immat Gran (auto) 0.01 (0.00-0.30) K/uL Imm/Tot Granulo (auto) 0.1 % ESR 2 (2-15) mm/hr D-Dimer Quant (PE/DVT) < 0.27 (0.00-0.50) ug/ml Sodium 137 (135-149) mmol/L Potassium 5.0 (3.6-5.1) mmol/L Chloride 103 (96-114) mmol/L Carbon Dioxide 24 (20-32) mmol/L Anion Gap 10 (7-15) mEq/L BUN 16 (5-24) mg/dL Creatinine 1.0 (0.5-1.5) mg/dL Estimated Creat Clear 124.45 Estimated GFR 110 ml/min Glucose 92 (60-115) mg/dL Lactate 3.4 H 0.7 (0.5-1.9) mmol/L Calcium 9.6 (8.4-10.6) mg/dL Magnesium 2.4 (1.5-2.6) mg/dL Total Bilirubin 0.5 (0.1-1.5) mg/dL Direct Bilirubin 0.2 (0.0-0.5) mg/dL AST 53 H (12-35) U/L ALT 32 (4-50) U/L Alkaline Phosphatase 82 (40-150) U/L Troponin I < 0.01 L (0.01-0.04) ng/mL C-Reactive Protein < 0.5 L (0.5-1.0) mg/dL Total Protein 7.1 (6.0-8.3) g/dL Albumin 4.6 (3.3-5.0) g/dL Lipase 135 (23-300) U/L TSH 1.180 (0.270-4.20) uIU/mL Imaging Data Chest x-ray: Attestation: I have reviewed the pertinent imaging results. Radiologist's impression: TECHNIQUE: Chest radiograph 2 views COMPARISON: 10/01/2023 FINDINGS: Mediastinum: The mediastinum is normal in appearance. The heart silhouette is normal in size and morphology. Lung: Both lungs are unremarkable in appearance. No sign of pleural effusion seen. No pneumothorax is identified. Bone and Soft tissue: Unremarkable for age. IMPRESSION: 1. No acute cardiopulmonary disease is seen. ECG Data Attestation: I personally reviewed and interpreted this ECG as follows: Discharge Plan Discharge Clinical Impression: Atypical chest pain Patient Disposition: Home, Self-Care Condition: Stable Additional Instructions: You should establish care with a primary care provider to discuss next steps. Things to consider would be a heart monitor or an echocardiogram. You will be sent home today with a copy of your EKG and all of your blood work to share with your doctor. Prescriptions: No Action No Known Home Medications Follow Up/Referrals: Provider,Not a Local [Primary Care Provider] - Stand Alone Forms: [employer] Info Instructions
[2024-10-03 15:33] LABS: Albumin* 4.6 g/dL (3.3-5.0); Chloride* 103 mmol/L (96-114)
[2024-10-03 15:34] LABS: Sodium* 137 mmol/L (135-149)
[2024-10-03] MEDS: 0.9 % SODIUM CHLORIDE 1000 ml 1,000 ML IV (15:35)
[2024-10-03 15:36] LABS: Est. Creatinine Clearance* 124.45; Estimated Glomerular Filt Rate 110 ml/min
[2024-10-03 15:37] LABS: Alanine Aminotransferase* 32 U/L (4-50); Alkaline Phosphatase* 82 U/L (40-150); Anion Gap 10 mEq/L (7-15); Aspartate Amino Transferase* 53 U/L (12-35); Bilirubin Direct* 0.2 mg/dL (0.0-0.5); Bilirubin Total* 0.5 mg/dL (0.1-1.5); Blood Urea Nitrogen* 16 mg/dL (5-24); Calcium* 9.6 mg/dL (8.4-10.6); Carbon Dioxide* 24 mmol/L (20-32); Glucose* 92 mg/dL (60-115); Lipase* 135 U/L (23-300); Magnesium* 2.4 mg/dL (1.5-2.6); Total Protein* 7.1 g/dL (6.0-8.3)
[2024-10-03 15:40] LABS: C Reactive Protein* < 0.5 mg/dL (0.5-1.0)
[2024-10-03 15:42] LABS: D Dimer Quantitative* < 0.27 ug/ml (0.00-0.50)
[2024-10-03 15:56] LABS: Troponin I* < 0.01 ng/mL (0.01-0.04)
[2024-10-03 16:25] LABS: Erythrocyte SedimentationRate* 2 mm/hr (2-15)
[2024-10-03 17:11] LABS: Lactate* 0.7 mmol/L (0.5-1.9)
== END 2024-10-03 17:43 | disposition home or self-care (01) ==
PROVIDERS: Emergency Provider Family Medicine
DX: R07.9 Chest pain, unspecified (principal)
CPT/HCPCS: 36415; 71046; 80048; 80076; 83605; 83690; 83735; 84443; 84484; 85025; 85379; 85651; 86140; 86618; 87468; 87469; 87484; 87798; 93005; 94761; 99284; J7030